=== PATIENT | male | born 1975 | race Caucasian/White ===

== ENCOUNTER 2020-11-29 20:18 | Emergency (ER) | payer OTHER, SELFPAY ==
[2020-11-29 20:29] VITALS: BP 148/96; PULSE 88; RESP 18; TEMP 36.6; O2SAT 96; BMI 38.9
--- NOTE | 2020-11-29 20:41 | [facility].EDGENADL ---
ED Disposition Clinical Impression: Paronychia Disposition: Home, Self-Care Condition on Discharge: Good Instructions: DI for Paronychia Additional Instructions: keep clean and use meds and see pcp for follow up Prescriptions: Sulfamethoxazole/Trimethoprim [Bactrim DS tablet] 1 each PO BID #14 tab Transmission Status: Pending to [facility] cephALEXin [cephALEXin 500mg capsule*] 500 mg PO TID #30 cap Transmission Status: Pending to [facility] Referrals: Dinh Poole [Primary Care Provider] - - Critical Care Critical Care Time: No Attestation: On 11/29/20, the high probability of a clinically significant, sudden or life threatening deterioration of the following system(s) required my full and direct attention, intervention and personal management. The time I documented below is in addition to time spent performing reported procedures but includes the following listed in this critical care notation. Medical Decision Making - Medical Records Medical records reviewed: Yes: I reviewed the patient's medical records. - Devin Inquiry Pt receiving controlled substance: No Vital Signs: 11/29/20 20:29 Temperature 97.8 F Temperature Source Oral Pulse Rate [Right] 88 Respiratory Rate 18 Blood Pressure [Right Arm] 148/96 H Blood Pressure Mean [Right Arm] 113 Blood Pressure Source [Right Arm] Automatic Cuff Blood Pressure Position [Right Arm] Sitting 02 Sat by Pulse Oximetry 96 Oxygen Delivery Method Room Air General Adult HPI - General Chief complaint: PAIN Stated complaint: L Midle finger infected Time Seen by Provider: 11/29/20 20:35 Mode of Arrival: Ambulatory Source of Information: Patient, Spouse, Medical Record Limitations: No Limitations Description of Symptoms (Recalled from ER Triage Doc. by RN): Pt has a red and swollen cuticle on the left middle finger for 1 week, has not seen PCP for this yet. Pt requestred ER. - History of Present Illness HPI narrative: infection to lt 3rd finger over the last week - lanced himself at home Onset (ago): day(s) Location: upper extremity Severity: moderate Associated symptoms: denies other symptoms - Related Data Home Medications Medication Instructions Recorded Confirmed Losartan/Hydrochlorothiazide 1 each PO DAILY 06/14/18 07/27/19 [Losartan-Hctz 50-12.5 mg Tab] allopurinoL [Allopurinol 100mg 100 mg PO DAILY 06/14/18 07/27/19 tablet] Previous Rx's Medication Instructions Recorded Ibuprofen [Motrin 800mg Tab] 800 mg PO Q8HP PRN 30 Days #30 tab 07/27/19 Tizanidine HCl [Zanaflex 4mg 4 mg PO BID PRN 10 Days #20 tab 07/27/19 tab] Sulfamethoxazole/Trimethoprim 1 each PO BID #14 tab 11/29/20 [Bactrim DS tablet] cephALEXin [cephALEXin 500mg 500 mg PO TID #30 cap 11/29/20 capsule*] Allergies Allergy/AdvReac Type Severity Reaction Status Date / Time diclofenac AdvReac Mild Nausea Verified 07/27/19 18:06 [facility] History - Hepatitis A Screen Drug use history?: No High risk sexual behaviors?: No History of sexually transmitted infection?: No Currently employed?: No Childcare worker?: No Do you have indoor plumbing?: Yes Do you have electricity?: Yes Attestation statement:: This patient has been screened for Hepatitis A risk factors. I have reviewed the patient's past medical history: Yes Medical History: Denies:: Diabetes Mellitus Type 1, Diabetes Mellitus Type 2 - Social History Smoking Status: Current every day smoker Tobacco Type: cigarettes # Packs/Day (cigarettes): 1 Alcohol Intake: never Occupational Status: unemployed ROS Obtained: Yes All systems reviewed & no additional complaints - Constitutional Constitutional: Denies fever(s) - Eyes Eyes: Denies change in vision - ENT Ears, Nose, Mouth, and Throat: Denies sore throat - Cardiovascular Cardiovascular: Denies chest pain - Respiratory Respiratory: Denies dyspnea - Gastrointestinal
[2020-11-29 21:18] VITALS: BP 142/84; PULSE 86; RESP 16; TEMP 36.6; O2SAT 98
== END 2020-11-29 21:23 | disposition home or self-care (01) ==
PROVIDERS: Emergency Provider Emergency Medicine; PCP Family Medicine
DX: L03.012 Cellulitis of left finger (principal); I10 Essential (primary) hypertension; F17.210 Nicotine dependence, cigarettes, uncomplicated
CPT/HCPCS: 99281